=== PATIENT | male | born 1955 | race Caucasian/White ===

== ENCOUNTER 2018-11-25 11:54 | Day surgery (SDC) | payer OTHER, SELFPAY ==
[2018-11-25] VITALS (7 sets, daily range): BP systolic 113–147; BP diastolic 75–91; PULSE 62–78; RESP 10–16; TEMP 36.1–36.6; O2SAT 94–99; BMI 27.1
--- NOTE | 2018-11-25 | PATH_ITS ---
[facility] Accession Number: [id number] . 01 Material submitted: . PART A: POLYP AT 25 PART B: POLYPS MID RIGHT COLON PART C: POLYP TRANSVERSE COLON . 02 Diagnosis: A. Colon, Polyp at 25, Biopsy: Tubular adenoma. . B. Mid Right Colon, Polyps, Biopsy: Tubular adenoma in one of two fragments. . C. Transverse Colon, Polyp, Biopsy: Tubular adenoma. MRV/11/26/2018 . 02 Electronically signed: . Sadaf Mendoza MD, Pathologist NPI- [id number] . 01 Gross description: . Received three formalin-filled containers, each labeled with the patient's name: . A. In a container labeled polyp at 25, are two 0.2-0.3 cm portions of tissue, entirely submitted in cassette A. B. In a container labeled polyp mid right colon, are two 0.3-0.5 cm portions of tissue, entirely submitted in cassette B. C. In a container labeled polyp transverse colon, are multiple less than 0.1 cm to 0.3 cm portions of tissue, entirely submitted in cassette C. ([id number]) /FRR . 02 Pathologist provided ICD-10: D12.6, D12.3 . 02 CPT . 185641, 245033, [id number] Performed at: 01 [facility] [address] [id number] MD Layo Villanueva MD Phone: [phone] Performed at: 02 [facility] [address] [place], [place] [id number] MD Sadaf Mendoza MD Phone: [phone]
[2018-11-25] MEDS: SODIUM CHLORIDE 0.9% 1,000 ML 200 ML IV (12:48)
--- NOTE | 2018-11-25 13:30 | PM.HP.1 ---
History of Present Illness Date Patient Seen: 11/25/18 Time Patient Seen: 13:31 Chief complaint: [id number] Colonscopy Narrative: Very pleasant 63-year-old gentleman who is quite healthy. He is here for screening colonoscopy. He denies any problems or symptoms related to the function of his GI tract. He reports his last colonoscopy was in 2018 and he remembers it as being normal. He reports he is here for colonoscopy as part of the Health maintenance program Patient History Social History household members: spouse Family & Social History Social History: household members spouse Meds Home Medications Medication Instructions Recorded Confirmed Type No Known Home Medications 11/25/18 11/25/18 History Allergies Allergy/AdvReac Type Severity Reaction Status Date / Time Penicillins Allergy Unknown Hives Verified 11/25/18 12:31 Review of Systems Review of Systems All systems reviewed & are unremarkable except as noted in HPI and below Exam Vital Signs (past 8 hours): - 11/25/18 12:47 Temperature 97.8 F Pulse Rate 67 Respiratory Rate 15 Blood Pressure 147/91 H Pulse Oximetry 99 Oxygen Delivery Method Room Air Narrative Exam Narrative: Well-nourished well-developed gentleman in no obvious distress HEENT: Normocephalic and atraumatic, pupils equal round reactive to light accommodation with anicteric sclera Lungs: Clear bilaterally Heart: Regular rate and rhythm Abdomen: Soft, nontender, active bowel sounds Extremities: Warm well perfused Assessment & Plan Plan: Assessment/Plan Narrative: Wonderful 63-year-old gentleman who is remarkably healthy. We discussed the risks and benefits of colonoscopy and he has expressed a desire to complete the procedure today.
[2018-11-25] MEDS: MIDAZOLAM 5 MG/5 ML VIAL IV (13:57)
[2018-11-25] MEDS: fentaNYL 250 MCG/5 ML INJ IV (13:57)
--- NOTE | 2018-11-25 14:22 | PM.OP.1 ---
Operative Date/Time/Diagnoses Date of procedure: 11/25/18 Time of procedure: 14:22 Pre-op diagnosis: Screening Post-op diagnosis: same Procedure & Clinicians Procedure: Colonoscopy to the cecum with polypectomy x4 Same procedure as scheduled: Yes Indications: Last colonoscopy approximately 10 and 1 half years ago Surgeon: Kelly Castellon Click Yes if Unassisted: Yes Anesthesia Type: Sedation (Versed 8 mg; fentanyl 300 mcg) Operative Notes Findings: 1. Excellent prep 2. Two diminutive sessile polyps in the mid transverse colon. Both removed with cold forceps and retained for pathology 3. 5 mm semi pedunculated polyp in the mid transverse colon removed with snare and cautery and retained for pathology 4. 4-5 mm semi pedunculated polyp at 25 cm from the anal verge removed with cold forceps and retained for pathology 5. Few small diverticuli noted in the sigmoid region 6. Grade 1 internal hemorrhoids Closure Type: not applicable Specimen(s): other Estimated Blood Loss (mL): 2 Procedure in detail: After obtaining informed consent, the patient was brought to the GI suite and placed in the left lateral decubitus position on the examination table. After placement of appropriate monitors, the patient was given incremental doses of Versed and Fentanyl until an appropriate level of sedation was achieved. A time out was held per SCOAP protocol. A digital rectal examination was performed and did not reveal any masses or obstructing lesions. The colonoscope was gently passed into the patient's anus and the entire colon navigated to the level of the cecum with minimal difficulty. Once in the cecum, the scope was withdrawn being sure to go before and beyond all mucosal folds and prominences and get an excellent examination. The findings are noted above. At the level of the rectal vault, the scope was retroflexed and the internal anal canal was examined. The scope was straightened and air aspirated from the colon. The instrument was removed from the patient's body and the procedure was concluded. The patient was allowed to awaken from sedation without difficulty and taken to the post-anesthesia care unit in good condition. Total sedation time 41 min Total withdrawal time 33 min Complications: none Condition: stable Disposition: PACU Plan for aftercare: 1. Discharge to home 2. Plan for next colonoscopy in 5 years or sooner depending upon final pathology 3. We will contact you with final pathology results and any additional recommendations.
== END 2018-11-25 15:25 | disposition home or self-care (01) ==
PROVIDERS: Surgery; PCP Family Medicine; Visit Provider Surgery
PROC: 0DJD8ZZ Inspection of Lower Intestinal Tract, Via Natural or Artificial Opening Endoscopic (ICD-10-PCS; CPT 45378; principal; 2018-11-25 12:45)
DX: Z12.11 Encounter for screening for malignant neoplasm of colon (principal); K64.0 First degree hemorrhoids; D12.6 Benign neoplasm of colon, unspecified; D12.3 Benign neoplasm of transverse colon
CPT/HCPCS: 45385; 45380; 99152; 99153; J2250; J3010

== ENCOUNTER → 2020-01-09 10:19 | Outpatient (CLI) | payer OTHER, SELFPAY ==
--- NOTE | 2020-01-09 | DI.RAD.S_ITS ---
PROCEDURE: XR FOOT LT 2V INDICATIONS: LEFT FOOT PAIN TECHNIQUE: 2 views of the foot were acquired. COMPARISON: None. FINDINGS: Bones: No fractures or dislocations. Cortical defect over lateral aspect of fifth metatarsal head is seen, bony erosion secondary to inflammatory arthropathy cannot be excluded. Well-defined plantar and dorsal calcaneal enthesophytes are seen. Soft tissues: Mild soft tissue swelling over fifth metatarsal head is seen. No tibiotalar joint effusion. Achilles tendon appears normal. IMPRESSION: Questionable erosion and soft tissue swelling over lateral aspect of fifth metatarsal head. Erosive changes secondary to inflammatory arthropathy cannot be excluded. No fracture or dislocation. Dictated by: Dawood Mckenzie M.D. on 01/09/2020 at 11:27 Approved by: Dawood Mckenzie M.D. on 01/09/2020 at 11:29
== END ==
PROVIDERS: PCP Student in an Organized Health Care Education/Training Program; Referring Provider Student in an Organized Health Care Education/Training Program; Visit Provider Student in an Organized Health Care Education/Training Program
DX: M79.672 Pain in left foot (principal); M79.89 Other specified soft tissue disorders
CPT/HCPCS: 73620

== ENCOUNTER → 2020-12-18 13:31 | Outpatient (CLI) | payer OTHER, SELFPAY ==
--- NOTE | 2020-12-18 | DI.RAD.S_ITS ---
PROCEDURE: XR KUB INDICATIONS: LLQ Pain TECHNIQUE: One view of the abdomen acquired. COMPARISON: None. FINDINGS: Surgical changes and devices: None. Bowel: Bowel gas pattern is normal. Soft tissues: No suspicious abdominal calcifications. Visualized solid organ contours appear normal in size. Bones: No suspicious bony lesions. IMPRESSION: No source for left lower quadrant pain. If pain persists with conservative management, consider CT. Dictated by: Richard Herrera [facility] Interpreted: Josh Dixon MD on 12/18/2020 at 16:41 Approved by: Josh Dixon M.D. on 12/18/2020 at 16:58
[2020-12-18 15:36] LABS: Prostate Specific Antigen Scrn 1.46 ng/mL (0.1-4.0)
== END ==
PROVIDERS: PCP Student in an Organized Health Care Education/Training Program; Referring Provider Student in an Organized Health Care Education/Training Program; Visit Provider Student in an Organized Health Care Education/Training Program
DX: Z12.5 Encounter for screening for malignant neoplasm of prostate (principal); R10.32 Left lower quadrant pain
CPT/HCPCS: 36415; 74018; G0103

== ENCOUNTER → 2022-09-23 08:49 | Outpatient (CLI) | payer MEDICARE, SELFPAY ==
[2022-09-23 10:59] LABS: Add Manual Diff / Slide Review NO; Basophils Absolute Auto 100 /uL (0-100); Eosinophils Absolute Auto 100 /uL (0-450); Eosinophils Percent Auto 2.4 % (2-4); Hematocrit 47.1 % (41-53); Lymphocytes Absolute Auto 1400 /uL (1100-4500); Lymphocytes Percent Auto 27.1 % (25-40); Mean Corpuscular HGB Conc 33.9 % (30-36); Mean Corpuscular Hemoglobin 31.3 PG (26-34); Mean Corpuscular Volume 92.4 fL (80-100); Monocytes Absolute Auto 500 /uL (0-900); Monocytes Percent Auto 10.3 % (3-14); Neutrophils Absolute Auto 3100 /uL (1500-7000); Neutrophils Percent Auto 59.2 % (50-75); Platelet Count 233 X10^3/uL (150-400); Red Cell Distribution Width 13.6 % (11.6-14.8); White Blood Cell Count 5.2 X10^3/uL (4.5-11.0)
[2022-09-23 11:34] LABS: Alanine Aminotransferase 39 IU/L (<50); Albumin 4.5 g/dL (3.5-5.0); Albumin Globulin Ratio 1.6 (1.0-2.8); Alkaline Phosphatase 58 U/L (38-126); Aspartate Aminotransferase 41 IU/L (17-59); BUN Creatinine Ratio 21.6 (6-22); Bilirubin Total 0.9 mg/dL (0.2-1.3); Blood Urea Nitrogen 19 mg/dL (9-20); Calcium 9.9 mg/dL (8.4-10.2); Carbon Dioxide 29 mmol/L (22-32); Chloride 100 mmol/L (98-107); Cholesterol 196 mg/dL (140-199); Estimated Glomerular Filt Rate > 60 mL/min (>60); Globulin 2.8 g/dL (1.7-4.1); Glucose 87 mg/dL (80-110); HDL Cholesterol 52 mg/dL (40-60); HEMOLYSIS 16 (0-50); LDL Cholesterol Calculated 122 mg/dL (<100); Potassium 4.4 mmol/L (3.4-5.1); Sodium 138 mmol/L (137-145); Total Protein 7.3 g/dL (6.3-8.2); Triglycerides 112 mg/dL (35-150)
[2022-09-23 11:49] LABS: Prostate Specific Antigen Scrn 1.78 ng/mL (0.1-4.0)
== END ==
PROVIDERS: PCP Family Medicine; Referring Provider Family Medicine; Visit Provider Family Medicine
DX: Z00.00 Encounter for general adult medical examination without abnormal findings (principal); Z12.5 Encounter for screening for malignant neoplasm of prostate
CPT/HCPCS: 36415; 80053; 80061; 85025; G0103

== ENCOUNTER 2023-02-12 19:00 | Emergency (ER) | payer MEDICARE, SELFPAY ==
[2023-02-12 19:07] VITALS: BP 145/82; PULSE 85; RESP 18; TEMP 37; O2SAT 97; BMI 27.1
[2023-02-12 19:31] LABS: Add Manual Diff / Slide Review NO; Basophils Absolute Auto 0 /uL (0-100); Basophils Percent Auto 0.4 % (0-2); Eosinophils Absolute Auto 100 /uL (0-450); Eosinophils Percent Auto 0.4 % (2-4); Hemoglobin 16.3 g/dL (13.5-17.5); Lymphocytes Absolute Auto 900 /uL (1100-4500); Lymphocytes Percent Auto 7.5 % (25-40); Mean Corpuscular HGB Conc 34.6 % (30-36); Mean Corpuscular Hemoglobin 31.6 PG (26-34); Mean Corpuscular Volume 91.2 fL (80-100); Monocytes Absolute Auto 1300 /uL (0-900); Monocytes Percent Auto 10.6 % (3-14); Neutrophils Absolute Auto 9900 /uL (1500-7000); Neutrophils Percent Auto 81.1 % (50-75); Platelet Count 242 X10^3/uL (150-400); Red Blood Cell Count 5.16 X10^6/uL (4.5-5.9); Red Cell Distribution Width 13.5 % (11.6-14.8); White Blood Cell Count 12.2 X10^3/uL (4.5-11.0)
[2023-02-12 19:38] LABS: Alanine Aminotransferase 35 IU/L (<50); Albumin 4.8 g/dL (3.5-5.0); Albumin Globulin Ratio 1.3 (1.0-2.8); Alkaline Phosphatase 59 U/L (38-126); Aspartate Aminotransferase 38 IU/L (17-59); BUN Creatinine Ratio 19.8 (6-22); Blood Urea Nitrogen 17 mg/dL (9-20); Calcium 9.8 mg/dL (8.4-10.2); Carbon Dioxide 24 mmol/L (22-32); Chloride 101 mmol/L (98-107); Estimated Glomerular Filt Rate > 60 mL/min (>60); Globulin 3.6 g/dL (1.7-4.1); Glucose 115 mg/dL (80-110); HEMOLYSIS 19 (0-50); Lipase 51 U/L (23-300); Potassium 3.9 mmol/L (3.4-5.1); Sodium 136 mmol/L (137-145); Total Protein 8.4 g/dL (6.3-8.2)
--- NOTE | 2023-02-12 20:30 | ED.ABDPAIN ---
HPI - Abdominal Pain General Chief Complaint: Abdominal Pain Stated Complaint: Lower ABD pain Time Seen by Provider: 02/12/23 19:46 Source: patient Mode of arrival: Ambulatory History of Present Illness HPI narrative: Patient is a 67-year-old male without significant past medical history presenting today with lower abdominal pain. He says has been ongoing for the last 4 days. He reports normal bowel movements he is had some nausea vomiting. He is not had any fever or chills. Pain is really quite intense it feels like when he is had a previous kidney stone. He denies any flank pain. He denies any painful or frequent urination. He does not feel like he is urinating a lot maybe not emptying his bladder. Was told that he may have the start BPH but unclear at this time. Bladder scan after urination showed 17 mL. Related Data Home Medications Medication Instructions Recorded Confirmed oxybutynin chloride 5 mg tablet 5 mg PO BID-TID PRN 09/24/21 10/31/22 Previous Rx's Medication Instructions Recorded etodolac 200 mg capsule 200 mg PO Q6H PRN pain #120 caps 10/23/22 ciprofloxacin HCl 500 mg tablet 500 mg PO BID #14 tabs 02/12/23 (Cipro) metronidazole 500 mg tablet 500 mg PO Q8H 7 days #21 tabs 02/12/23 Allergies Allergy/AdvReac Type Severity Reaction Status Date / Time Penicillins Allergy Unknown Hives Verified 02/12/23 19:13 venlafaxine Allergy Unknown Unknown Verified 02/12/23 19:13 Review of Systems Review of Systems ROS Unobtainable: All systems reviewed & are unremarkable except as noted in HPI and below Patient History Medical History Actinic keratosis due to exposure to sunlight Bilateral hand numbness Bilateral lower extremity edema Hammertoe of left foot Hearing loss Hypercholesteremia Kidney stones (~2015) Lower urinary tract symptoms (LUTS) Neck stiffness Skin cancer (~2016) Varicose veins of both lower extremities Surgical History Anesthesia History of back surgery (~1989) Family History Father Cancer Mother Cancer Sister Cancer Social History household members: spouse Smoking Status: Never smoker Smoking Status: Never smoker alcohol intake frequency: 0-2 drinks per day Substance Use Type: does not use Exam Initial Vital Signs Initial Vital Signs: Vital Signs Temperature 98.6 F 02/12/23 19:07 Pulse Rate 85 02/12/23 19:07 Respiratory Rate 18 02/12/23 19:07 Blood Pressure 145/82 H 02/12/23 19:07 Pulse Oximetry 97 02/12/23 19:07 Oxygen Delivery Method Room Air 02/12/23 19:07 GENERAL: Alert 67-year-old male appears very uncomfortable and in no acute distress. HEENT: Head atraumatic,EOMI, pupils reactive, face symmetric, moist mucous membranes CARDIOVASCULAR: Regular rate and rhythm without murmurs, rubs or gallops. RESPIRATORY: Breath sounds equal bilaterally, no wheezes rales or rhonchi. ABDOMEN: Soft, significant suprapubic tenderness no guarding no rebound no palpable mass or bladder : No CVA tenderness EXTREMITIES: Normal range of motion, no clubbing or edema. Neurovascularly intact NEUROLOGICAL: Alert and oriented x4. SKIN: Warm, dry, no laceration, no petechiae, no rashes or lesions. Course Orders Ordered: ED Orders 02/12/23 19:14 EKG-12 Lead Stat 02/12/23 19:20 Complete Blood Count AUTO DIFF Stat Comprehensive Metabolic Panel Stat Lactate (Lactic Acid) Stat Lipase Stat 02/12/23 20:31 CT abdomen pelvis w con Stat Ondansetron HCl (Ondansetron 4 Mg/2 Ml Inj) 4 mg IV NOW PRN PRN Reason: Nausea And Vomiting Discontinued Medications Hydrocodone Bitart/Acetaminophen (Hydrocodone/Acet 5/325 Prepack) 1 bottle MISC SEEINSTR ONE Stop: 02/12/23 21:40 Ciprofloxacin (Ciprofloxacin 250 Mg Tablet) 500 mg PO NOW ONE Stop: 02/12/23 21:40 Ketorolac Tromethamine (Ketorolac 30 Mg/Ml Vial) 15 mg IV NOW ONE Stop: 02/12/23 20:32 Last Admin: 02/12/23 20:44 Dose: 15 mg Documented By: JOLLY Metronidazole (Metronidazole 500 Mg Tablet) 500 mg PO NOW ONE Stop: 02/12/23 21:40 Vital Signs Vital signs: Vital Signs - 8 hr 02/12/23 19:07 Temperature 98.6 F Pulse Rate 85 Respiratory Rate 18 Blood Pressure 145/82 H Pulse Oximetry 97 Oxygen Delivery Method Room Air MDM - Abdominal Pain Lab Data 02/12/23 19:20 02/12/23 19:20 Labs: Lab Results 02/12/23 02/12/23 02/12/23 Range/Units 19:20 19:20 19:20 WBC 12.2 H (4.5-11.0) X10^3/uL RBC 5.16 (4.5-5.9) X10^6/uL Hgb 16.3 (13.5-17.5) g/dL Hct 47.0 (41-53) % MCV 91.2 (80-100) fL MCH 31.6 (26-34) PG MCHC 34.6 (30-36) % RDW 13.5 (11.6-14.8) % Plt Count 242 (150-400) X10^3/uL Neut % (Auto) 81.1 H (50-75) % Lymph % (Auto) 7.5 L (25-40) % [place] % (Auto) 10.6 (3-14) % Eos % (Auto) 0.4 L (2-4) % Baso % (Auto) 0.4 (0-2) % Neut # (Auto) 9900 H (0595-8226) /uL Lymph # (Auto) 900 L (0242-1477) /uL [place] # (Auto) 1300 H (0-900) /uL Eos # (Auto) 100 (0-450) /uL Baso # (Auto) 0 (0-100) /uL Sodium 136 L (137-145) mmol/L Potassium 3.9 (3.4-5.1) mmol/L Chloride 101 (98-107) mmol/L Carbon Dioxide 24 (22-32) mmol/L BUN 17 (9-20) mg/dL Creatinine 0.86 (0.66-1.25) mg/dL Estimated GFR > 60 (>60) mL/min BUN/Creatinine Ratio 19.8 (6-22) Glucose 115 H (80-110) mg/dL Lactate 1.0 (0.7-2.1) mmol/L Calcium 9.8 (8.4-10.2) mg/dL Total Bilirubin 1.0 (0.2-1.3) mg/dL AST 38 (17-59) IU/L ALT 35 (<50) IU/L Alkaline Phosphatase 59 (38-126) U/L Total Protein 8.4 H (6.3-8.2) g/dL Albumin 4.8 (3.5-5.0) g/dL Globulin 3.6 (1.7-4.1) g/dL Albumin/Globulin Ratio 1.3 (1.0-2.8) Lipase 51 (23-300) U/L Point of care testing: Urine Dip Bedside Urine Glucose Negative Bedside Urine Bilirubin - Negative Bedside Urine Ketone - Negative Urine Specific [place] 1.015 Bedside Urine Occult Blood - Negative Bedside Urine pH 5.5 Bedside Urine Protein - Negative Bedside Urine Urobilinogen - Negative Bedside Urine Nitrite - Negative Bedside Urine Leukocytes - Negative Esterase Imaging Data CT scan - abdomen/pelvis: Radiologist's Impression: PROCEDURE:? CT ABDOMEN PELVIS W CON ? INDICATIONS:? severe lower ab pain ? TECHNIQUE:? After the administration of intravenous contrast, axial sections acquired from the lung bases to the pubic symphysis.? Coronal and sagittal reformats were performed.? For radiation dose reduction, the following was used:? automated exposure control, adjustment of mA and/or kV according to patient size.? ? COMPARISON:? None. ? FINDINGS:? Image quality:? Good ? Lower chest:? Unremarkable ? Solid organs:? Possible hepatic steatosis.? Liver is otherwise unremarkable.? Gallbladder is unremarkable.? No pathologic dilation of the biliary tree or pancreatic duct.? No splenomegaly.? No adrenal nodules. ? Bosniak 1 and 2 renal lesions are present, for which no dedicated followup is necessary per 2019 proposed guidelines.? No hydronephrosis ? Vessels and lymph nodes:? Main portal vein appears patent.? No abdominal aortic aneurysm or pathologic adenopathy by size criteria. ? Bowel and peritoneum:? No evidence of small bowel obstruction.? No drainable abscess.? No pathologic ascites.? There is wall thickening, moderate inflammatory changes around the sigmoid colon, which has numerous diverticula.? Appendix is not seen. ? Body wall:? Tiny fat containing umbilical hernia. ? Pelvis:? Bladder is under distended.? The prostate is heterogeneous and mildly enlarged, consider PSA correlation. ? Bones:? Mild degenerative changes without acute or suspicious osseous finding. ? ? IMPRESSION:? Proximal sigmoid diverticulitis.? There are moderate inflammatory changes, with associated wall thickening.? No abscess.? Please correlate with age-appropriate colonoscopy results.? Other incidental findings as above.? ? ? Dictated by: Tayo Rasmussen M.D. on 02/12/2023 at 21:05 ? ? ECG Data Interpretation: Normal sinus rhythm rate 75 HI interval 156 QRS [address] changes no T-wave inversions MDM Narrative Medical decision making narrative: Patient is 67-year-old healthy male who presents with abdominal pain for the last 4 days. Toradol does seem to help with pain. He has leukocytosis of 12 with a normal lactate normal electrolytes and no SANTHOSH. CT confirmed sigmoid diverticulitis without complications. Can be treated as outpatient with antibiotics and pain control. Discussion of diet with him. He now reports that he is actually been eating quite a bit of popcorn lately. Patient and are given return precautions and they verbally understand. Discharge Plan Departure Patient Disposition: Home Clinical Impression: Diverticulitis Instructions: DI for Diverticulitis Activity Restrictions/Additional Instructions: *You have been diagnosed with diverticulitis *What to do: At this time recommend low fiber diet until diverticulitis has cleared. Then high-fiber diet and smaller amounts of popcorn. *Continue to take medications as directed --> [facility] Cipro 500 mg twice a day for 7 days Flagyl 500 mg 3 times a day for 7 days Ibuprofen 600 mg every 6 hours if needed for [id number] [place] 1 tablet every 6 hours needed for severe pain *Follow up with your primary care provider in 2-3 days or call [phone] *Return to ER if you should have increasing pain nausea vomiting bloody stool or any new, worsening or concerning symptoms CONTROLLED SUBSTANCE DISCHARGE (Narcotoic/benzodiazepine/Flexeril/Phenergan) 1. You have been prescribed narcotic medications, it does have acetaminophen/Tylenol/paracetamol in it, DO NOT TAKE MORE THAN 4,00mg in 24 hours of Tylenol. TRAMADOL DOES NOT CONTAIN TYLENOL 2. Please understand that we cannot provide further refills of narcotics, benzodiazepines or controlled substances through the ED and her pain management will need to be through your provider. 3. While on these medications you cannot drive or operate heavy machinery. 4. You cannot sign legal documents or perform any duties such as this. 5. As long as you're taking opiate pain medications he should also be taking a stool softener such as Colace, Dulcolax, MiraLAX or prune juice, to help avoid constipation. Prescriptions: New metronidazole 500 mg tablet 500 mg PO Q8H 7 Days Qty: 21 0RF ciprofloxacin HCl [Cipro] 500 mg tablet 500 mg PO BID Qty: 14 0RF No Action oxybutynin chloride 5 mg tablet 5 mg PO BID-TID PRN etodolac 200 mg capsule 200 mg PO Q6H PRN (Reason: pain) Qty: 120 5RF Referrals: Carlos Chino DO [Primary Care Provider] - Stand Alone Forms: Patient Portal/API
--- NOTE | 2023-02-12 20:31 | DI.CT.S_ITS ---
PROCEDURE: CT ABDOMEN PELVIS W CON INDICATIONS: severe lower ab pain TECHNIQUE: After the administration of intravenous contrast, axial sections acquired from the lung bases to the pubic symphysis. Coronal and sagittal reformats were performed. For radiation dose reduction, the following was used: automated exposure control, adjustment of mA and/or kV according to patient size. COMPARISON: None. FINDINGS: Image quality: Good Lower chest: Unremarkable Solid organs: Possible hepatic steatosis. Liver is otherwise unremarkable. Gallbladder is unremarkable. No pathologic dilation of the biliary tree or pancreatic duct. No splenomegaly. No adrenal nodules. Bosniak 1 and 2 renal lesions are present, for which no dedicated followup is necessary per 2019 proposed guidelines. No hydronephrosis Vessels and lymph nodes: Main portal vein appears patent. No abdominal aortic aneurysm or pathologic adenopathy by size criteria. Bowel and peritoneum: No evidence of small bowel obstruction. No drainable abscess. No pathologic ascites. There is wall thickening, moderate inflammatory changes around the sigmoid colon, which has numerous diverticula. Appendix is not seen. Body wall: Tiny fat containing umbilical hernia. Pelvis: Bladder is under distended. The prostate is heterogeneous and mildly enlarged, consider PSA correlation. Bones: Mild degenerative changes without acute or suspicious osseous finding. IMPRESSION: Proximal sigmoid diverticulitis. There are moderate inflammatory changes, with associated wall thickening. No abscess. Please correlate with age-appropriate colonoscopy results. Other incidental findings as above. Dictated by: Tayo Rasmussen M.D. on 02/12/2023 at 21:05 Approved by: Tayo Rasmussen M.D. on 02/12/2023 at 21:08
[2023-02-12] MEDS: KETOROLAC 30 MG/ML VIAL 15 MG IV (20:44)
[2023-02-12 21:47] VITALS: PULSE 69; O2SAT 95
[2023-02-12 22:00] VITALS: PULSE 69; O2SAT 96
[2023-02-12 22:20] VITALS: BP 158/85; PULSE 68; O2SAT 95
[2023-02-12] MEDS: HYDROCODONE/ACET 5/325 PREPACK 1 BOTTLE MISC (22:23)
[2023-02-12] MEDS: CIPROFLOXACIN 250 MG TABLET 500 MG PO (22:24)
[2023-02-12] MEDS: metroNIDAZOLE 500 MG TABLET PO (22:25)
== END 2023-02-12 22:29 | disposition home or self-care (01) ==
PROVIDERS: Emergency Provider Emergency Medicine; PCP Family Medicine
DX: K57.92 Diverticulitis of intestine, part unspecified, without perforation or abscess without bleeding (principal); R11.2 Nausea with vomiting, unspecified; R10.30 Lower abdominal pain, unspecified
CPT/HCPCS: 36415; 51798; 74177; 80053; 81003; 83605; 83690; 85025; 93005; 93010; 96374; 99284; J1885; Q9967

== ENCOUNTER → 2023-12-29 07:54 | Outpatient (CLI) | payer MEDICARE, SELFPAY ==
[2023-12-29 08:41] LABS: Add Manual Diff / Slide Review NO; Basophils Absolute Auto 0 /uL (0-100); Basophils Percent Auto 1.1 % (0-2); Eosinophils Absolute Auto 100 /uL (0-450); Eosinophils Percent Auto 3.1 % (2-4); Hematocrit 46.2 % (41-53); Hemoglobin 16.1 g/dL (13.5-17.5); Lymphocytes Absolute Auto 1400 /uL (1100-4500); Mean Corpuscular HGB Conc 34.9 % (30-36); Mean Corpuscular Hemoglobin 32.3 PG (26-34); Mean Corpuscular Volume 92.8 fL (80-100); Monocytes Absolute Auto 400 /uL (0-900); Monocytes Percent Auto 9.8 % (3-14); Neutrophils Absolute Auto 2300 /uL (1500-7000); Platelet Count 271 X10^3/uL (150-400); Red Blood Cell Count 4.98 X10^6/uL (4.5-5.9); Red Cell Distribution Width 13.5 % (11.6-14.8); White Blood Cell Count 4.2 X10^3/uL (4.5-11.0)
[2023-12-29 10:55] LABS: BUN Creatinine Ratio 15.5 (6-22); Blood Urea Nitrogen 15 mg/dL (9-20); Calcium 9.9 mg/dL (8.4-10.2); Carbon Dioxide 29 mmol/L (22-32); Chloride 107 mmol/L (98-107); Estimated Glomerular Filt Rate > 60 mL/min (>60); Glucose 90 mg/dL (80-110); HEMOLYSIS < 15 (0-50); Potassium 4.7 mmol/L (3.4-5.1); Sodium 141 mmol/L (137-145)
[2023-12-29 10:56] LABS: Alanine Aminotransferase 40 IU/L (<50); Albumin 4.4 g/dL (3.5-5.0); Albumin Globulin Ratio 1.4 (1.0-2.8); Alkaline Phosphatase 56 U/L (38-126); Aspartate Aminotransferase 43 IU/L (17-59); Bilirubin Total 0.9 mg/dL (0.2-1.3); Cholesterol 194 mg/dL (140-199); Globulin 3.1 g/dL (1.7-4.1); HDL Cholesterol 50 mg/dL (40-60); LDL Cholesterol Calculated 109 mg/dL (<100); Total Protein 7.5 g/dL (6.3-8.2); Triglycerides 173 mg/dL (35-150)
[2023-12-29 11:31] LABS: Prostate Specific Antigen 2.28 ng/mL (0.10-4.00)
== END ==
PROVIDERS: PCP Family Medicine; Referring Provider Family Medicine; Visit Provider Family Medicine
DX: N52.9 Male erectile dysfunction, unspecified (principal); R39.9 Unspecified symptoms and signs involving the genitourinary system; Z12.5 Encounter for screening for malignant neoplasm of prostate; E78.00 Pure hypercholesterolemia, unspecified
CPT/HCPCS: 36415; 80053; 80061; 84153; 85025

== ENCOUNTER 2024-03-01 12:18 | Day surgery (SDC) | payer MEDICARE, SELFPAY ==
[2024-03-01] MEDS: LACTATED RINGERS 1,000 ML 42 ML IV (13:00)
[2024-03-01 13:05] VITALS: BP 143/81; PULSE 64; RESP 16; TEMP 36.3; O2SAT 99
--- NOTE | 2024-03-01 13:35 | PM.HP.1 ---
History of Present Illness History of Present Illness Date Patient Seen: 03/01/24 Time Patient Seen: 13:35 Chief complaint: Colonoscopy Narrative: 68-year-old man personal history of colonic polyps here for screening colonoscopy. Last colonoscopy 2018. No family history of intestinal malignancy. No abdominal concerns today. [facility] Medical History Dyspepsia Lower back pain History of basal cell carcinoma BPH (benign prostatic hyperplasia) Hypertriglyceridemia Well adult exam Erectile dysfunction Actinic keratosis due to exposure to sunlight Varicose veins of both lower extremities Hypercholesteremia Bilateral hand numbness Bilateral lower extremity edema Neck stiffness Lower urinary tract symptoms (LUTS) Hammertoe of left foot Hearing loss Kidney stones (~2015) Skin cancer (~2016) Surgical History Anesthesia History of back surgery (~1989) Family History Father Cancer Mother Cancer Sister Cancer Social History household members: spouse Smoking Status: Never smoker alcohol intake: never Meds Home Medications and Allergies Home Medications Medication Instructions Recorded Confirmed Type prazosin 1 mg capsule 1 mg PO BEDTIME #30 caps 02/05/24 03/01/24 Rx Allergies Allergy/AdvReac Type Severity Reaction Status Date / Time Penicillins Allergy Unknown Hives Verified 03/01/24 13:03 venlafaxine Allergy Unknown Unknown Verified 03/01/24 13:03 Exam Vital Signs (past 8 hours): - 03/01/24 13:05 Temperature 97.4 F L Pulse Rate 64 Respiratory Rate 16 Blood Pressure 143/81 H Pulse Oximetry 99 Oxygen Delivery Method Room Air Oxygen Delivery Method Room Air Narrative Exam Narrative: General adult man alert oriented no acute distress Chest nonlabored respiration Extremities warm well perfused Assessment & Plan Assessment & Plan narrative: The patient requires colorectal screening and colonoscopy is recommended. Technical details were discussed. Risks, benefits, alternatives explained. Risks including but not limited to myocardial infarction, aspiration, bleeding, pain, missed lesion, incomplete examination, need for further radiographic studies, intestinal injury, and need for major abdominal surgery were discussed. All questions were answered to their satisfaction, and they are in agreement with this plan.
--- NOTE | 2024-03-01 13:59 | P.OP.COLON_ITS ---
Operative Date/Time/Diagnoses Date of procedure: 03/01/24 Time of procedure: 13:59 Pre-op diagnosis: Colorectal screening Procedure & Clinicians Study performed: Screening colonoscopy Same procedure as scheduled: Yes Indications: Colorectal screening Surgeon: Aubrey So Procedure Notes Procedure in detail: The history and physical was performed/updated and the patient is ASA class is 2. The procedure was discussed in detail with the patient. Potential risks co mplications including infection, bleeding, missed diagnosis, perforation, need for surgery, and were explained. Their questions were answered and informed consent was obtained. Patient was brought to the procedure room and placed standard monitoring equipment. The patient's vital signs were monitored continuously throughout the entire procedure. Prior to starting time-out was performed. The patient was placed in the left lateral recumbent position. Procedural sedation was administered by anesthesia. Examination began with a thorough inspection of the perianal area there was no evidence of fissures, fistulae, external hemorrhoids or cutaneous malignancy. The colonoscopy scope was then placed into the anal canal and was advanced to the cecum, which was identified by the ileocecal valve, the appendiceal orifice and the confluence of the taenia. The scope was then slowly withdrawn examining colon thoroughly in all directions, irrigating it of any residual stool. The scope was retroflexed within the rectum The patient tolerated the procedure well. They will be discharged once criteria are met. The prep was of good/excellent quality. The withdrawl time was 7 minutes. FINDINGS * No masses polyps * Diverticulosis moderate of the descending and sigmoid colon. * Internal hemorrhoids Specimen(s): none sent Impression: Normal colonoscopy Post-procedure Recommendations: High fiber diet Disposition: same day surgery
[2024-03-01 14:00] VITALS: BP 155/94; PULSE 67; RESP 17; TEMP 36.1; O2SAT 95
[2024-03-01 14:06] VITALS: BP 149/90; PULSE 64; RESP 14; TEMP 36.1; O2SAT 94
[2024-03-01 14:13] VITALS: BP 154/88; PULSE 61; RESP 15; TEMP 36.2; O2SAT 98
== END 2024-03-01 14:21 | disposition home or self-care (01) ==
PROVIDERS: PCP Family Medicine; Referring Provider Surgery; Visit Provider Surgery
PROC: 0DJD8ZZ Inspection of Lower Intestinal Tract, Via Natural or Artificial Opening Endoscopic (ICD-10-PCS; CPT 45378; principal; 2024-03-01 13:45)
DX: Z12.11 Encounter for screening for malignant neoplasm of colon (principal); K57.30 Diverticulosis of large intestine without perforation or abscess without bleeding; K64.8 Other hemorrhoids
CPT/HCPCS: G0121; J2704

== ENCOUNTER → 2024-12-20 14:20 | Outpatient (CLI) | payer MEDICARE, SELFPAY ==
--- NOTE | 2024-12-20 19:04 | DI.NM.S_ITS ---
DATE OF SERVICE: 12/20/2024 PROCEDURE: Exercise stress test. INDICATIONS: Atypical chest pain, borderline hypertension. CARDIAC STRESS: Patient underwent exercise stress test under the supervision of an attending staff. The patient walked on Joaquín protocol for 10 minutes and 45 seconds, achieved maximum heart rate of 145, which was 95% of target heart rate. Resting blood pressure 118/18. Peak blood pressure 206/92 mmHg. TERE -43%. Baseline rhythm was sinus with right axis. During stress, some nonspecific upsloping ST depression in inferolateral leads without any convincing ischemic changes. Some isolated PVCs without any ventricular tachycardia. No chest pain. Had some shortness of breath. Achieved 12.8 METs of workload. CONCLUSION: Exercise stress test did not reveal any convincing ischemic EKG changes. Excellent exercise tolerance. TERE -43%. 12.8 METs of workload. Peak blood pressure 206/92 mmHg with resting blood pressure 118/80 with mildly hypertensive blood pressure response. No anginal symptoms. Had some shortness of breath. Overall, low-risk exercise stress test. No complex arrhythmias other than some isolated PVCs. Correlate clinically. Kavon Wallace - KAYLAN/mt/[place] doc#: [id number]/job#: [id number] dd: 12/20/2024 17:43:00 dt: 12/20/2024 18:57:00 DICTATING /COPIES TO: Ludmila Bhardwaj MD COPIES MNE: SAVANNA;
== END ==
PROVIDERS: PCP Family Medicine; Referring Provider Family Medicine; Visit Provider Family Medicine
DX: R07.89 Other chest pain (principal)
CPT/HCPCS: 93017

== ENCOUNTER → 2025-01-03 07:17 | Outpatient (CLI) | payer MEDICARE, SELFPAY ==
[2025-01-03 08:05] LABS: Add Manual Diff / Slide Review NO; Basophils Absolute Auto 0 /uL (0-100); Basophils Percent Auto 0.6 % (0-2); Eosinophils Absolute Auto 200 /uL (0-450); Eosinophils Percent Auto 3.5 % (2-4); Hematocrit 47.1 % (41-53); Hemoglobin 15.9 g/dL (13.5-17.5); Lymphocytes Absolute Auto 1200 /uL (1100-4500); Lymphocytes Percent Auto 21.3 % (25-40); Mean Corpuscular HGB Conc 33.8 % (30-36); Mean Corpuscular Hemoglobin 31.8 PG (26-34); Mean Corpuscular Volume 94.3 fL (80-100); Monocytes Absolute Auto 600 /uL (0-900); Monocytes Percent Auto 11.1 % (3-14); Neutrophils Absolute Auto 3400 /uL (1500-7000); Neutrophils Percent Auto 63.5 % (50-75); Platelet Count 250 X10^3/uL (150-400); Red Blood Cell Count 4.99 X10^6/uL (4.5-5.9); Red Cell Distribution Width 13.7 % (11.6-14.8); White Blood Cell Count 5.4 X10^3/uL (4.5-11.0)
[2025-01-03 08:41] LABS: Alanine Aminotransferase 33 IU/L (<50); Albumin 4.7 g/dL (3.5-5.0); Albumin Globulin Ratio 1.6 (1.0-2.8); Alkaline Phosphatase 52 U/L (38-126); Aspartate Aminotransferase 42 IU/L (17-59); BUN Creatinine Ratio 17.6 (6-22); Bilirubin Total 1.4 mg/dL (0.2-1.3); Blood Urea Nitrogen 18 mg/dL (9-20); Calcium 10.3 mg/dL (8.4-10.2); Carbon Dioxide 30 mmol/L (22-32); Chloride 102 mmol/L (98-107); Cholesterol 215 mg/dL (140-199); Estimated Glomerular Filt Rate > 60 mL/min (>60); Globulin 2.9 g/dL (1.7-4.1); Glucose 102 mg/dL (80-110); HDL Cholesterol 60 mg/dL (40-60); HEMOLYSIS < 15 (0-50); LDL Cholesterol Calculated 127 mg/dL (<100); Potassium 4.8 mmol/L (3.4-5.1); Sodium 140 mmol/L (137-145); Total Protein 7.6 g/dL (6.3-8.2); Triglycerides 140 mg/dL (35-150)
[2025-01-03 09:11] LABS: Prostate Specific Antigen Scrn 2.13 ng/mL (0.1-4.0)
== END ==
PROVIDERS: PCP Family Medicine; Referring Provider Family Medicine; Visit Provider Family Medicine
DX: R07.89 Other chest pain (principal); Z12.5 Encounter for screening for malignant neoplasm of prostate; I10 Essential (primary) hypertension; N40.1 Benign prostatic hyperplasia with lower urinary tract symptoms; R35.1 Nocturia; E78.1 Pure hyperglyceridemia; E78.00 Pure hypercholesterolemia, unspecified
CPT/HCPCS: 36415; 80053; 80061; 85025; G0103

== ENCOUNTER 2025-04-29 03:46 | Emergency (ER) | payer MEDICARE, SELFPAY ==
[2025-04-29] VITALS (10 sets, daily range): BP systolic 125–182; BP diastolic 64–102; PULSE 64–75; RESP 16; TEMP 36.6; O2SAT 92–97; BMI 26.9
--- NOTE | 2025-04-29 03:56 | ED_ITS ---
HPI - Abdominal Pain General Chief Complaint: Abdominal Pain Stated Complaint: Poss Kidney Stones, poss diverticulitis Time Seen by Provider: 04/29/25 03:52 History of Present Illness HPI narrative: 69-year-old male with history of prior kidney stone 8 mm past without lithotripsy or laser interventions years ago, also has history of diverticulitis, complains of right flank pain onset 3 days ago, with pain in the right lower quadrant increasing last couple of days, concerned he might be having another stone. No injury trauma new activities. One episode of urination he felt seemed foul-smelling, otherwise no malodorous, and without grossly bloody coloration. Denies sensation of fevers or chills. Denies chest pain shortness of breath. Denies nausea or vomiting, no diarrhea. Denies use of blood thinner medications. Related Data Previous Rx's ?Medication ?Instructions ?Recorded prazosin 1 mg capsule 1 mg PO BEDTIME #30 caps 10/18 sildenafil 25 mg tablet 25 mg PO DAILY PRN sexual ac tivity 01/16/25 #20 tabs ciprofloxacin HCl 500 mg tablet 500 mg PO BID #20 tabs 04/29/25 (Cipro) hydrocodone 5 mg-acetaminophen 325 1 tab PO Q6H PRN pa in #10 tabs 04/29/25 mg tablet metronidazole 500 mg tablet 500 mg PO TID #30 tabs 03/19 Allergies Allergy/AdvReac Type Severity Reaction Status Date / Time Penicillins Allergy Unknown Hives Verified 04/29/25 04:00 venlafaxine Allergy Unknown Unknown Verified 01/05/25 11:07 amoxicillin Allergy Hives Verified 04/29/25 04:00 Patient History Medical History Internal hemorrhoids Diverticulosis Medicare annual wellness visit, subsequent Situational stress Atypical chest pain Hypertension Dyspepsia Lower back pain History of basal cell carcinoma BPH (benign prostatic hyperplasia) Hypertriglyceridemia Well adult exam Erectile dysfunction Actinic keratosis due to exposure to sunlight Varicose veins of both lower extremities Hypercholesteremia Bilateral hand numbness Bilateral lower extremity edema Neck stiffness Lower urinary tract symptoms (LUTS) Hammertoe of left foot Hearing loss Kidney stones (~2015) Skin cancer (~2016) Surgical History Anesthesia History of back surgery (~1989) Family History Father Cancer Mother Cancer Sister Cancer Social History household members: spouse Smoking Status: Never smoker alcohol intake: never alcohol intake frequency: 0-2 drinks per day Exam Narrative Exam Narrative: GENERAL: Well-developed patient, in mild distress. HEAD: Atraumatic. Normocephalic. EYES: Pupils equal round and reactive. Extraocular motions intact. No scleral icterus. No injection or drainage. ENT: Nose without bleeding, purulent drainage. Throat without erythema, tonsillar hypertrophy or exudate. Airway patent. NECK: Trachea midline. Non tender CARDIOVASCULAR: Regular rate and rhythm without murmurs, gallops, or rubs. RESPIRATORY: Clear to auscultation. Breath sounds equal bilaterally. No wheezes, rales, or rhonchi. GASTROINTESTINAL: Abdomen soft, non-tender, nondistended. EXTREMITIES: No edema or joint tenderness. BACK: Nontender without deformity or crepitance. No flank tenderness. NEURO: AOx3. Motor functions grossly nonfocal. SKIN: No rash or erythema of visible areas Initial Vital Signs Initial Vital Signs: Vital Signs Blood Pressure 179/86 H 04/29/25 03:54 Course Orders Ordered: Discontinued Medications Hydrocodone Bitart/Acetaminophen (Hydrocodone/Acet 5/325 Prepack) [address] [facility] Stop: 04/29/25 05:45 Last Admin: 04/29/25 05:52 Dose: 1 bottle Documented By: JOHN Hydromorphone HCl (Hydromorphone Hcl 0.5 Mg/0.5 Ml Syringe) 0.5 mg IV NOW ONE Stop: 04/29/25 04:38 Last Admin: 04/29/25 05:14 Dose: 0.5 mg Documented By: ZHAO Ciprofloxacin (Cipro) 400 mg in 200 mls @ 200 mls/hr IV NOW ONE Stop: 04/29/25 06:27 Last Infusion: 04/29/25 07:00 Dose: Infused Documented By: Admin: 04/29/25 05:44 Dose: 200 mls/hr Documented By: JOHN Ketorolac Tromethamine (Ketorolac 30 Mg/Ml Vial) 15 mg IV NOW ONE Stop: 04/29/25 04:38 Last Admin: 04/29/25 05:13 Dose: 15 mg Documented By: ZHAO Metronidazole (Metronidazole 500 Mg Tablet) 500 mg PO NOW ONE Stop: 04/29/25 05:29 Last Admin: 04/29/25 05:44 Dose: 500 mg Documented By: JOHN Ondansetron HCl (Ondansetron 4 Mg/2 Ml Inj) 4 mg IV NOW PRN PRN Reason: Nausea And Vomiting Ondansetron HCl (Ondansetron 4 Mg Odt) 4 mg PO NOW PRN PRN Reason: Nausea And Vomiting Ondansetron HCl (Ondansetron 4 Mg/2 Ml Inj) 4 mg IV NOW ONE Stop: 04/29/25 04:38 Last Admin: 04/29/25 05:14 Dose: 4 mg Documented By: ZHAO Vital Signs Vital signs: Vital Signs - 8 hr 04/29/25 03:54 04/29/25 03:55 04/29/25 03:57 Temperature Pulse Rate 72 68 Respiratory Rate Blood Pressure 179/86 H Pulse Oximetry 96 96 Oxygen Delivery Method 04/29/25 03:57 04/29/25 04:00 04/29/25 04:00 Temperature 97.8 F Pulse Rate 73 72 Respiratory Rate 16 Blood Pressure 176/86 H 179/86 H Pulse Oximetry 96 95 Oxygen Delivery Method Room Air 04/29/25 04:00 04/29/25 04:30 04/29/25 04:30 Temperature Pulse Rate 75 Respiratory Rate Blood Pressure 165/86 H 182/102 H Pulse Oximetry 94 Oxygen Delivery Method 04/29/25 05:00 04/29/25 05:20 04/29/25 05:20 Temperature Pulse Rate 66 65 Respiratory Rate Blood Pressure 163/98 H Pulse Oximetry 97 97 Oxygen Delivery Method 04/29/25 05:30 04/29/25 05:30 Temperature Pulse Rate 71 Respiratory Rate Blood Pressure 155/72 H Pulse Oximetry 93 Oxygen Delivery Method Room Air MDM - Abdominal Pain Lab Data Attestation: I reviewed the patient's lab results. Lab results narrative: White blood cell count 67768, hemoglobin 15.9, platelets adequate. Glucose 117. BUN 21 with creatinine 0.87. Serum CO2 normal. Electrolytes unremarkable. Liver functions normal. Lipase normal. Urinalysis negative. 04/29/25 04:15 04/29/25 04:15 Labs: Lab Results 04/29/25 04/29/25 Range/Units 03:57 04:15 WBC 11.5 H (4.5-11.0) X10^3/uL RBC 4.87 (4.5-5.9) X10^6/uL Hgb 15.9 (13.5-17.5) g/dL Hct 45.2 (41-53) % MCV 92.9 (80-100) fL MCH 32.6 (26-34) PG MCHC 35.1 (30-36) % RDW 13.1 (11.6-14.8) % Plt Count 270 (150-400) X10^3/uL Neut % (Auto) 85.2 H (50-75) % Lymph % (Auto) 6.8 L (25-40) % [place] % (Auto) 7.1 (3-14) % Eos % (Auto) 0.5 L (2-4) % Baso % (Auto) 0.4 (0-2) % Neut # (Auto) 9800 H (6025-7561) /uL Lymph # (Auto) 800 L (5445-4798) /uL [place] # (Auto) 800 (0-900) /uL Eos # (Auto) 100 (0-450) /uL Baso # (Auto) 100 (0-100) /uL Sodium 136 L (137-145) mmol/L Potassium 4.2 (3.4-5.1) mmol/L Chloride 103 (98-107) mmol/L Carbon Dioxide 25 (22-32) mmol/L BUN 21 H (9-20) mg/dL Creatinine 0.87 (0.66-1.25) mg/dL Estimated GFR > 60 (>60) mL/min BUN/Creatinine Ratio 24.1 H (6-22) Glucose 117 H (70-99) mg/dL Calcium 10.2 (8.4-10.2) mg/dL Total Bilirubin 1.0 (0.2-1.3) mg/dL AST 48 (17-59) IU/L ALT 46 (<50) IU/L Alkaline Phosphatase 63 (38-126) U/L Total Protein 7.9 (6.3-8.2) g/dL Albumin 4.7 (3.5-5.0) g/dL Globulin 3.2 (1.7-4.1) g/dL Albumin/Globulin Ratio 1.5 (1.0-2.8) Lipase 51 (23-300) U/L Urine RBC 1-5/hpf (0-5/HPF) Urine WBC None seen (0-5/HPF) Ur Squamous Epith Cells 0-1 /hpf (0-5/HPF) Urine Bacteria None seen (None) Hyaline Casts 0-1/lpf (None) Ur Culture Indicated? Cult not indicated Vol Urine Centrifuged 10ml (spun) Point of care testing: Urine Dip Bedside Urine Glucose Negative Bedside Urine Bilirubin - Negative Bedside Urine Ketone - Negative Urine Specific [place] 1.015 Bedside Urine Occult Blood +/- Bedside Urine pH 6.0 Bedside Urine Protein + 30 Bedside Urine Urobilinogen - Negative Bedside Urine Nitrite - Negative Bedside Urine Leukocytes - Negative Esterase MDM Narrative Medical decision making narrative: 69-year-old male with right flank and right lower quadrant abdominal pain for 3 days, history of prior kidney stone, history of prior diverticulitis. Afebrile, sirs screen negative. DDX right ureteral stone, UTI, appendicitis, colitis, diverticulitis, musculoskeletal, hernia, other. Labs pending. Uncomfortable appearing, would like pain medications. IV Dilaudid/Zofran, IV Toradol. CT abdomen and pelvis noncontrast ordered. Lab data: White blood cell count 33981, hemoglobin 15.9, platelets adequate. Glucose 117. BUN 21 with creatinine 0.87. Serum CO2 normal. Electrolytes unremarkable. Liver functions normal. Lipase normal. Urinalysis negative. CT abdomen and pelvis noncontrast. Impressions: ?Findings compatible with acute diverticulitis involving the mid sigmoid colon. No pericolonic focal drainable collection or pneumoperitoneum.. See tele radiology report. History of penicillin/amoxicillin allergy noted. IV ciprofloxacin, oral Flagyl. Will send prescriptions to pharmacy for both antibiotics, 10 day course. Hydrocodone/APAP home pack, prescription sent to pharmacy. Discharged home with . Follow up with PCP advised early this next week. Return precautions discussed. Discharge Plan Departure Patient Disposition: Home Clinical Impression: Diverticulitis Instructions: DI for Diverticulitis Activity Restrictions/Additional Instructions: Lower abdominal pain, history of kidney stones, history of prior diverticulitis. No fever on triage. No significant tenderness on examination. Diagnostic uncertainty of which problem might be the culprit, or some other problem, therefore CT scan of the abdomen and pelvis was performed. CT showed diverticulitis changes of the sigmoid colon in the left lower quadrant region of the abdomen. Fortunately there is no complication changes on imaging right now such as bowel obstruction or perforation or abscess formation. We started antibiotics with ciprofloxacin and Flagyl for now, history of penicillin allergy noted. Further antibiotics ciprofloxacin and Flagyl prescription sent to your pharmacy, for 10 day courses of both. Take antibiotics as directed. Pain medications also provided, consider stool softener to help prevent constipation. Hydrocodone home pack dispensed from the emergency department, also short-term prescription sent to your pharmacy. Drink plenty of fluids. Consider recheck with your regular doctor early next week. Return to this/nearest emergency department for any change worsening symptoms or any concerns prior. Prescriptions: New ciprofloxacin HCl [Cipro] 500 mg tablet 500 mg PO BID Qty: 20 0RF metronidazole 500 mg tablet 500 mg PO TID Qty: 30 0RF hydrocodone-acetaminophen 5-325 mg tablet 1 tab PO Q6H PRN (Reason: pain) Qty: 10 0RF No Action sildenafil 25 mg tablet 25 mg PO DAILY PRN (Reason: sexual activity) Qty: 20 5RF Rx Instructions: administer 30 minutes to 4 hours before activity prazosin 1 mg capsule 1 mg PO BEDTIME Qty: 30 2RF Referrals: Greg Barr DO [Primary Care Provider, Family Practice] Stand Alone Forms: Patient Portal/API
[2025-04-29 04:18] LABS: Culture Indicated Urine Cult Not Indicated
--- NOTE | 2025-04-29 04:26 | DI.CT.S_ITS ---
PROCEDURE: CT ABDOMEN PELVIS WO CON INDICATIONS: flank pain, hx stones TECHNIQUE: Axial sections were acquired from the lung bases to the pubic symphysis. Coronal and sagittal reformats were performed. For radiation dose reduction, the following was used: automated exposure control, adjustment of mA and/or kV according to patient size. COMPARISON: [facility], CT, CT ABDOMEN PELVIS W CON, 02/12/2023, 20:35. FINDINGS: Image quality: Diagnostic. Lower Chest: No significant findings. URINARY: Right Kidney: No stones or hydronephrosis. Small outpouching along the posterior aspect of the right kidney measuring 1.5 cm seen to be cystic on prior CT scan.. Right Ureter: No hydroureter. Left Kidney: No stones or hydronephrosis. Left Ureter: No hydroureter. Bladder: Normal wall thickness. No stones. ABDOMEN: Liver: No contour-deforming solid mass. Gallbladder: No radiopaque gallstones or wall thickening. Biliary ducts: No biliary dilation. Pancreas: No ductal dilation. Spleen: Size is within normal limits. Adrenal Glands: No adrenal nodules. Stomach and Bowel: Diverticulosis with wall thickening inflammation of the sigmoid colon, consistent with acute diverticulitis. No extraluminal gas or organized fluid collections. Peritoneum: No abnormal intraperitoneal fluid. No free air. Ventral Wall: No hernia. Abdominal Nodes: No enlarged retroperitoneal or mesenteric lymph nodes. Vessels: Aorta and inferior vena cava are normal in size. Atherosclerotic vascular calcifications. PELVIS: Pelvic Organs: Prostatomegaly. Pelvic Nodes: Unremarkable. Miscellaneous: No inguinal hernias are seen. Bones: Unremarkable. IMPRESSION: Acute sigmoid diverticulitis without extraluminal gas or organized fluid collection. Findings are concordant with preliminary interpretation provided by [facility]. Dictated by: Peter Perez M.D. on 04/29/2025 at 9:02 Approved by: Peter Perez M.D. on 04/29/2025 at 9:07
[2025-04-29 04:28] LABS: Add Manual Diff / Slide Review NO; Hematocrit 45.2 % (41-53); Hemoglobin 15.9 g/dL (13.5-17.5); Lymphocytes Absolute Auto 800 /uL (1100-4500); Mean Corpuscular HGB Conc 35.1 % (30-36); Mean Corpuscular Hemoglobin 32.6 PG (26-34); Mean Corpuscular Volume 92.9 fL (80-100); Platelet Count 270 X10^3/uL (150-400)
[2025-04-29 04:37] LABS: Alanine Aminotransferase 46 IU/L (<50); Albumin 4.7 g/dL (3.5-5.0); Albumin Globulin Ratio 1.5 (1.0-2.8); Alkaline Phosphatase 63 U/L (38-126); Blood Urea Nitrogen 21 mg/dL (9-20); Calcium 10.2 mg/dL (8.4-10.2); Carbon Dioxide 25 mmol/L (22-32); Chloride 103 mmol/L (98-107); Estimated Glomerular Filt Rate > 60 mL/min (>60); Globulin 3.2 g/dL (1.7-4.1); Glucose 117 mg/dL (70-99); HEMOLYSIS < 15 (0-50); Lipase 51 U/L (23-300); Potassium 4.2 mmol/L (3.4-5.1); Sodium 136 mmol/L (137-145); Total Protein 7.9 g/dL (6.3-8.2)
[2025-04-29] MEDS: KETOROLAC 30 MG/ML VIAL 15 MG IV (05:13)
[2025-04-29] MEDS: ONDANSETRON 4 MG/2 ML INJ IV (05:14)
[2025-04-29] MEDS: CIPROFLOXACIN 400 MG/200 ML PIGGYBACK 200 MG IV (05:44)
[2025-04-29] MEDS: HYDROCODONE/ACET 5/325 PREPACK 1 BOTTLE MISC (05:52)
== END 2025-04-29 07:03 | disposition home or self-care (01) ==
PROVIDERS: Emergency Provider Emergency Medicine; PCP Family Medicine
DX: K57.92 Diverticulitis of intestine, part unspecified, without perforation or abscess without bleeding (principal)
CPT/HCPCS: 36415; 74176; 80053; 81003; 81015; 83690; 85025; 96365; 96375; 99284; J0744; J1171; J1885; J2405